=== PATIENT | female | born 1965 | race Hispanic/Latino ===

== ENCOUNTER → 2019-03-13 | Day surgery (SDC) | payer OTHER ==
[~2019-03-13] MED LIST: BENICAR40 MG PO; INDERAL PO; SYNTHROID50 MCG PO
== END | disposition home or self-care (01) ==
LOC: ER 03-03 17:35 → EDSTATUS 03-11 12:00 → CIR.AMB 11:45
DX: D26.0 Other benign neoplasm of cervix uteri (principal); N93.8 Other specified abnormal uterine and vaginal bleeding